=== PATIENT | female | born 1950 | race Caucasian/White ===

== ENCOUNTER → 2017-07-01 | Outpatient (CLI) | payer OTHER | LOC: BMCIMAGING 09:49 | PROVIDERS: ATTEND Podiatrist Foot & Ankle Surgery | DX: M20.11 Hallux valgus (acquired), right foot (principal); M20.12 Hallux valgus (acquired), left foot; M21.611 Bunion of right foot; M21.612 Bunion of left foot; M19.071 Primary osteoarthritis, right ankle and foot; M19.072 Primary osteoarthritis, left ankle and foot ==

== ENCOUNTER 2017-07-07 09:32 | Day surgery (SDC) | payer OTHER ==
[2017-07-07] MEDS ORDERED: LIDOCAINE 1% 2 ML INJ ID PRN (09:42)
[2017-07-07] MEDS ORDERED: LR 1,000 ML IV ONE (09:42)
[2017-07-07] MEDS ORDERED: PROPOFOL/EMULSION 500 MG/50 ML BOTTLE IV ONE (10:40)
[2017-07-07] MEDS ORDERED: LIDOCAINE 2% 5 ML SDV ONE ×2 (10:40→12:01)
[2017-07-07] MEDS ORDERED: fentaNYL 100 MCG/2 ML INJ ONE (10:40)
[2017-07-07] MEDS ORDERED: BUPIVACAINE 0.5% 30 ML SDV ONE (12:01)
[2017-07-07] MEDS ORDERED: ceFAZolin 1 GM/5 ML SYR ONE (12:01)
[2017-07-07] MEDS ORDERED: ceFAZolin 2 GM/SWFI 20 ML SYR IVP ONE (12:14)
[2017-07-07] MEDS ORDERED: MIDAZOLAM 2 MG/2 ML VIAL IVP ONE (12:23)
--- NOTE | 2017-07-07 12:24 | PDANEPAE ---
ANE History of Present Illness right foot bunionectomy ANE Past Medical History - Cardiovascular History Hx Hypertension: No Hx Arrhythmias: No Hx Chest Pain: No Hx Coronary Artery / Peripheral Vascular Disease: No Hx CHF / Valvular Disease: No Hx Palpitations: No Cardiovascular History Comment: BP tends to run low. and slower heart beat - Pulmonary History Hx COPD: No Hx Asthma/Reactive Airway Disease: No Hx Recent Upper Respiratory Infection: No Hx Oxygen in Use at Home: No Hx Sleep Apnea: No Sleep Apnea Screening Result - Last Documented: Negative - Neurologic History Hx Cerebrovascular Accident: No Hx Seizures: No Hx Dementia: No - Endocrine History Hx Diabetes: No - Renal History Hx Renal Disorders: No - Liver History Hx Hepatic Disorders: No - Neurological & Psychiatric Hx Hx Neurological and Psychiatric Disorders: Yes Neurological / Psychiatric History Comment: numbness to left hand - Cancer History Hx Cancer: No - Congenital Disorder History Hx Congenital Disorders: No - GI History Hx Gastrointestinal Disorders: No - Other Health History Other Health History: CHINIK left ear - Chronic Pain History Chronic Pain: No - Surgical History Prior Surgeries: none ANE Review of Systems Review of systems is: negative Review of Systems: - Exercise capacity METS (RN): 5 METS ANE Patient History - Allergies Allergies/Adverse Reactions: No Known Allergies Allergy (Verified 07/06/17 16:37) - Home Medications Home medications: home medication list seen and reviewed - NPO status NPO Since - Liquids (Date): 07/07/17 NPO Since - Liquids (Time): 08:00 NPO Since - Solids (Date): 07/06/17 NPO Since - Solids (Time): 20:00 - Anes Hx Anes Hx: no prior problems - Smoking Hx Smoking Status: Never smoked - Family Anes Hx Family Hx Anesthesia Complications: none ANE Labs/Vital Signs - Vital Signs Blood Pressure: 128/69 Heart Rate: 52 Respiratory Rate: 16 O2 Sat (%): 100 Height: 165.1 cm Weight: 52.163 kg ANE Physical Exam - Airway Neck exam: FROM Mallampati Score: Class 2 Mouth exam: normal dental/mouth exam - Pulmonary Pulmonary: no respiratory distress - Cardiovascular Cardiovascular: regular rate and rhythym - ASA Status ASA Status: I ANE Anesthesia Plan Anesthesia Plan: GA with mask
--- NOTE | 2017-07-07 12:25 | PDHPUP ---
History & Physical Update H&P update statement: This history and physical update is based on an assessment of the patient which was completed after admission or registration (within 24 hours), but prior to the surgery/procedure. H&P update: H&P reviewed & patient examined, no change in patient's condition since H&P completed
[2017-07-07] MEDS ORDERED: ceFAZolin 2 GM/SWFI 2 GM/20 ML SYR IVP ONE (12:30)
[2017-07-07] MEDS ORDERED: fentaNYL 100 MCG/2 ML INJ IVP PRN ×2 (13:27→15:07)
[2017-07-07] MEDS ORDERED: LR 500 ML IV PRN (13:27)
[2017-07-07] MEDS ORDERED: HYDROmorphONE/DILAUDID 1 MG/ML INJ IVP PRN (13:27)
[2017-07-07] MEDS ORDERED: ONDANSETRON 4 MG/2 ML VIAL IVP PRN ×3 (13:27→15:07)
[2017-07-07] MEDS ORDERED: oxyCODONE IR 5 MG TAB PO PRN ×2 (13:27→15:07)
[2017-07-07] MEDS ORDERED: PROMETHAZINE HCL 25 MG/ML INJ IVP PRN (13:27)
[2017-07-07] MEDS ORDERED: HYDROCODONE/APAP 5/325 TAB PO PRN ×2 (13:27→15:07)
[2017-07-07] MEDS ORDERED: ACETAMINOPHEN 500 MG TAB PO PRN ×2 (13:27→15:07)
[2017-07-07] MEDS ORDERED: NALOXONE HCL 0.4 MG/ML INJ IVP PRN ×2 (13:27→15:07)
[2017-07-07] MEDS ORDERED: ALBUTEROL 3 ML DEYVIAL IH PRN (13:27)
[2017-07-07] MEDS ORDERED: PROPOFOL 200 MG/20 ML VIAL ONE (14:17)
[2017-07-07] MEDS ORDERED: KETOROLAC 30 MG/1 ML SDV ONE (14:44)
[2017-07-07] MEDS ORDERED: DEXAMETHASONE 4 MG/ML VIAL ONE (14:47)
[2017-07-07] MEDS ORDERED: OXYCODONE/APAP 5/325 TAB PO PRN (14:56)
[2017-07-07] MEDS ORDERED: ONDANSETRON DISINTEGRATING 4 MG TAB PO PRN (14:56)
--- NOTE | 2017-07-07 15:00 | POSTOPPROG ---
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 Bull/ Chevron bunionectomy, PP repair, PIPJ fusion , Yossi Inf/Abcess present in the surg proc area at time of surgery?: No Depth: Deep Incisional (Fascial) EBL: Tourniquet 225 mm Hg 106 min Complications: None
[2017-07-07 15:47] VITALS: BP 130/81
--- NOTE | 2017-07-08 15:43 | GOP ---
[f rep st] OPERATIVE REPORT DATE OF OPERATION: 07/07/2017 SURGEON: Dariela Smyth DPM ANESTHESIA: Local with monitored anesthesia care. PREOPERATIVE DIAGNOSIS: 1. Right foot hallux abductovalgus deformity. 2. Right foot 2nd toe hammertoe deformity. 3. 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 4. Right foot 2nd metatarsalgia. POSTOPERATIVE DIAGNOSIS: 1. Right foot hallux abductovalgus deformity. 2. Right foot 2nd toe hammertoe deformity. 3. 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 4. Right foot 2nd metatarsalgia. PROCEDURE PERFORMED: 1. Right foot modified Bull bunionectomy. 2. Right foot Chevron bunionectomy. 3. Right foot plantar plate repair. 4. Right 2nd toe proximal interphalangeal joint fusion. 5. Right foot Yossi osteotomy 2nd metatarsal. FINDINGS: ESTIMATED BLOOD LOSS: Minimal. DESCRIPTION OF PROCEDURE: Under mild sedation, the patient was brought into the operating room and p laced on the operating table in a supine position. Following IV sedation, local anesthesia was obtain ed about the right foot using 20 cc of a 1:1 mixture 0.5% Marcaine plain and 1% lidocaine plain. The foot was then scrubbed, prepped, and draped in the usual aseptic manner. A sterile pneumatic ankle to urniquet was placed about the right ankle. The foot was exsanguinated and tourniquet inflated to 225 mmHg. Attention was then directed over the 1st metatarsophalangeal joint, where an incision was made from p roximal to distal medial to the tendon of the extensor hallucis longus. The incision was deepened thr ough subcutaneous tissue with care taken to identify and retract all vital neurovascular structures. All bleeders were cauterized as necessary. An inverted L-type capsulotomy was then performed over the 1st metatarsophalangeal joint. The periosteum and capsule were reflected medially and laterally to e xpose the 1st metatarsal head at the operative site. The medial eminence was resected utilizing an os cillating bone saw. The lateral release was then performed releasing the adductor hallucis from its a ttachment at the base of the proximal phalanx. The lateral contraction of the hallux was noted to be reduced. The lateral aspect of the base of the proximal phalanx was debrided with a rongeur. At this point, a 0.045 inch K-wire was then inserted from medial to lateral across the 1st metatarsal head to serve as an axis guide. A Chevron osteotomy was then performed through the 1st metatarsal metaphysea l region with the arms pointed dorsal proximal and plantar proximal. The dorsal arm was made longer t o accommodate internal fixation. The K-wire was removed and the 1st metatarsal head shifted laterally and impacted upon the remaining 1st metatarsal shaft. It was temporarily fixated with two 0.045 inch K-wires. Following standard AO principles and techniques, 2 Synthes 2.7 cortical screws were placed across the osteotomy site with excellent compression noted. The temporary fixation was removed. The r emaining medial bone shelf was resected utilizing an oscillating bone saw. All rough edges were jenelle hed with a bur. The wound was irrigated with copious sterile saline Ancef irrigation. The periosteum and capsule were repaired with 3-0 Vicryl. The subcuticular layer was repaired with 4-0 Monocryl and the skin with 4-0 Prolene in horizontal suture technique. Attention was then directed to the dorsally dislocated 2nd toe. An incision was made between the 2nd and 3rd metatarsal heads and extended over the 2nd toe and the 2nd proximal interphalangeal joint. Th e incision was deepened through subcutaneous tissue with care taken to identify and retract all vital neurovascular structures. All bleeders were cauterized as necessary. A transverse extensor tenotomy was then performed over the proximal interphalangeal joint. The head of the proximal phalanx and base of the middle phalanx were resected utilizing an oscillating bone saw. The wound was then irrigated with copious sterile saline Ancef irrigation. Attention was then directed further proximal at the 2nd metatarsophalangeal joint, where an incision was made into the joint. A McGlamry elevator was used t o free adhesions about the joint. A Yossi osteotomy was then performed using a sagittal bone saw. The 2nd metatarsal head was then shifted proximally and temporarily fixated with a K-wire. A second K-wir e was then inserted from dorsal to plantar across the base of the proximal phalanx. A distractor was then used across the 2nd metatarsophalangeal joint to evaluate the plantar plate. The plantar plate w as completely ruptured at the lateral aspect, but there were medial fibers present. The remaining med ial fibers were released from the base of the proximal phalanx with a 15 blade. At this point, the ia orpion instrumentation for the Arthrex plantar plate repair kit was used to place the suture through the plantar plate. This did grab the plantar plate nicely. Two drill holes were then used from dorsal to plantar at the medial and the lateral aspect of the base of the proximal phalanx. The technique w as slightly changed instead of crossing the suture through the proximal phalanx to go from plantar do rsal to allow K-wire fixation for the hammertoe. The suture passer was then placed from dorsal to zac ntar and the suture passed through the proximal phalanx from plantar to dorsal. The suture was left i n place until the metatarsal osteotomy was fixated permanently. The wound was irrigated at this time. The distraction K-wires were removed. Attempt was made to use the Arthrex snap-off screws. However, they did not allow for well enough compression across the osteotomy site. The snap-off screws were re moved and replaced with Synthes 2.0 cortical screws from dorsal to plantar. The dorsal bone flange wa s removed with a rongeur. The wound was irrigated with copious sterile saline Ancef irrigation. At th is point, the suture was then tightened dorsally on the proximal phalanx and this pulled the 2nd toe nicely down to the plantar plate with a good repair of the joint. This was then tied in place. At thi s point, a K-wire was then inserted through the base of the middle phalanx, exited out the distal asp ect of the 2nd toe, and retrograded proximally through the proximal phalanx and into the head of the 2nd metatarsal. This was evaluated under fluoroscopy and found to be in perfect position. The wound was then irrigated with copious sterile saline Ancef irrigation. The capsule and extensor t endon DICTATION ENDS HERE INJECTABLES: 20 cc of a 1:1 mixture of 0.5% Marcaine plain and 1% lidocaine plain. HEMOSTASIS: Pneumatic ankle tourniquet at 225 mmHg for 106 minutes. MATERIALS: 1. 2 x 2.7 cortical screws in the 1st metatarsal. 2. 2 x 2.0 Synthes cortical screws in the 2nd metatarsal. 3. Arthrex plantar plate repair kit with FiberWire, 2nd metatarsophalangeal joint. /[id number]/MODL
--- NOTE | 2017-07-09 15:26 | GOP ---
[f rep st] OPERATIVE REPORT DATE OF OPERATION: 07/07/2017 SURGEON: Dariela Smyth DPM PREOPERATIVE DIAGNOSIS: 1. Right foot hallux abductovalgus deformity. 2. Right foot 2nd toe hammertoe deformity. 3. 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 4. Right foot 2nd metatarsalgia. POSTOPERATIVE DIAGNOSIS: 1. Right foot hallux abductovalgus deformity. 2. Right foot 2nd toe hammertoe deformity. 3. 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 4. Right foot 2nd metatarsalgia. PROCEDURE PERFORMED: 1. Right foot modified Bull bunionectomy. 2. Right foot Chevron bunionectomy. 3. Right foot 2nd metatarsophalangeal joint plantar plate repair. 4. Right foot 2nd toe proximal interphalangeal joint fusion. 5. Right 2nd metatarsal Yossi osteotomy. FINDINGS: ESTIMATED BLOOD LOSS: Minimal. DESCRIPTION OF PROCEDURE: Under mild sedation, the patient was brought into the operating room, [facility] ed on the operating table in a supine position. Following IV sedation, local anesthesia was obtained about the right foot using 20 cc of a 1:1 mixture of 0.5% Marcaine plain and 1% lidocaine plain. e foot was then scrubbed, prepped, and draped in the usual aseptic manner. A sterile pneumatic ankle tourniquet was placed about the right ankle. The foot was exsanguinated and tourniquet inflated to 225 mmHg. Attention was then directed to the 1st metatarsophalangeal joint, where an incision was ma de medial and parallel to the tendon of the extensor hallucis longus. The incision was deepened thro ugh subcutaneous tissue with care taken to identify and retract all vital neural and vascular structu res. All bleeders were cauterized as necessary. An inverted L-type capsulotomy was then performed o arsh the 1st metatarsophalangeal joint. The periosteum and capsule were reflected medially and latera lly to expose the 1st metatarsal head at the operative site. The medial eminence was resected utiliz ing an oscillating bone saw. At this point, a lateral release was then performed, releasing the addu ctor hallucis from its attachment at the base of the proximal phalanx. The lateral contraction on th e hallux was noted to be reduced. The exostosis at the lateral base of the proximal phalanx was lazaro carlitos with a rongeur. The wound was irrigated with copious sterile saline and Ancef irrigation. A 0.0 45 inch K-wire was then inserted from medial to lateral across the 1st metatarsal head to serve as an axis guide. A Chevron osteotomy was then performed with the arms pointed dorsal proximal and planta r proximal. The dorsal arm was made longer to accommodate internal fixation. The K-wire was removed and the 1st metatarsal head shifted laterally and impacted upon the remaining 1st metatarsal shaft. It was temporarily fixated with two 0.045 inch K-wires. Following standard AO principles and techni ques, two 2.7 cortical screws were placed across the osteotomy site with excellent compression noted. The medial eminence was resected utilizing an oscillating bone saw. All rough edges were smoothed with a bur. The wound was irrigated with copious sterile saline and Ancef irrigation. Redundant med ial capsule was resected as necessary. The periosteum and capsule were closed with 3-0 Vicryl. The subcuticular layer was repaired with 4-0 Monocryl and the skin with 4-0 Prolene. Attention was then directed to the 2nd metatarsophalangeal joint, where an incision was made between the 2nd and 3rd metatarsal heads and extended over the dorsal aspect of the 2nd toe proximal interpha langeal joint. The incision was deepened through subcutaneous tissue with care taken to identify and retract all vital neural and vascular structures. All bleeders were cauterized as necessary. A tra nsverse extensor tenotomy was then performed over the proximal interphalangeal joint. The head of th e proximal phalanx and base of the middle phalanx were resected and passed from the operative field. At this point, attention was then directed to the 2nd metatarsophalangeal joint, where an incision w as made over the joint. The periosteum and capsule were reflected medially and laterally to expose t he 2nd metatarsal head at the operative site. A McGlamry elevator was used to free the plantar adhes ions about the joint. At this point, a Yossi osteotomy was then performed through the 2nd metatarsal head and the 2nd metatarsal head pushed proximally and temporarily fixated with a K-wire used for the distraction of the joint. A second K-wire was then inserted from dorsal to plantar across the base of the proximal phalanx. The distractor was applied and the plantar plate evaluated dorsally through the joint. There were some remaining fibers medially, but the plantar plate was completely ruptured laterally. The remaining fibers were released. The Arthrex Scorpion device was used to place a sut ure through the plantar plate, which had a good bite. Once this was performed and adequate suture fi xation of the plantar plate was performed, the distractor was removed and the dorsal pinning removed from the proximal phalanx. At this point, the suture holes were made in the base of the proximal pha lanx. This was done from dorsal plantar at the medial and lateral aspects of the proximal phalanx. The suture anchor was then used from dorsal to plantar to grab the suture from the plantar plate. Th e suture from the plantar plate was then brought from plantar to dorsal at both the medial and latera l suture holes. At this point, the temporary fixation was removed from the 2nd metatarsal head and t he 2nd metatarsal head placed into appropriate permanent fixation location. This was temporarily fix ated and evaluated under fluoroscopy and found to be in perfect position. Initially, the 2 snap-off screws with the Arthrex kit were used in the 2nd metatarsal head. However, they did not grab the fra cture appropriately and were not tight. It was decided at this point to remove both the snap-off scr ews replaced them with Synthes 2.0 cortical screws. This fixated the osteotomy nicely. Once this wa s performed, the 2nd metatarsophalangeal joint was placed in the appropriate position and the suture from the plantar plate tied down tightly to the dorsal aspect of the proximal phalanx. This nicely r epaired the predislocation syndrome of the toe and held the toe into anatomic position. At this poin t, the proximal interphalangeal joint was then addressed and a K-wire inserted from the middle phalan x out the distal aspect of the tail and then back through the proximal phalanx. The K-wire was then advanced into the 2nd metatarsal head. This was all evaluated under fluoroscopy. The distal aspect of the wire was then bent and cut. Position of the toe was evaluated clinically and under fluoroscop y and found to be in perfect position. The incision was irrigated with copious sterile saline and An cef irrigation. The tourniquet was deflated during closure at 106 minutes. The extensor tendon was repaired at the proximal interphalangeal joint, as well as the 2nd metatarsophalangeal joint with 3-0 Vicryl. The subcutaneous tissue was repaired with 3-0 Vicryl. The subcuticular layer was repaired with 4-0 Monocryl and the skin with 4-0 Prolene in horizontal suture technique. The wounds were dres sed with Xeroform, 4 x 4 gauze, Adam, cast padding. The patient was then transferred to the recovery room with vital signs stable and vascular status int act. Following a period of postoperative monitoring, the patient will be discharged home, advised to ice and elevate her foot. She is advised to keep the dressing clean, dry, and intact. She will fol low up with me within the next week for a dressing change and wound check. She is weightbearing as t olerated in the walking boot. MATERIALS: 2.7 cortical screws in the 1st metatarsal, 2.0 cortical screws in the 2nd metatarsal, and the Arthrex plantar plate repair kit used with the FiberWire in the 2nd metatarsophalangeal joint. HEMOSTASIS: Pneumatic ankle tourniquet at 225 mmHg for 106 minutes. /[id number]/MODL
== END 2017-07-07 16:30 | disposition home or self-care (01) ==
LOC: FSGY 09:32
PROVIDERS: ATTEND Podiatrist Foot & Ankle Surgery
PROC: 0SGP04Z Fusion of Right Toe Phalangeal Joint with Internal Fixation Device, Open Approach (ICD-10-PCS; principal; 2017-07-07 11:15)
PROC: 0SSM04Z Reposition Right Metatarsal-Phalangeal Joint with Internal Fixation Device, Open Approach (ICD-10-PCS; principal; 2017-07-07 11:15)
PROC: 0QSQ04Z Reposition Right Toe Phalanx with Internal Fixation Device, Open Approach (ICD-10-PCS; principal; 2017-07-07 11:15)
PROC: BQ1X1ZZ Fluoroscopy of Right Foot/Toe Joint using Low Osmolar Contrast (ICD-10-PCS; 2017-07-07 11:15)
DX: M20.11 Hallux valgus (acquired), right foot (principal); M20.41 Other hammer toe(s) (acquired), right foot; M21.6X1 Other acquired deformities of right foot; E78.5 Hyperlipidemia, unspecified; M79.671 Pain in right foot
CPT/HCPCS: C1713; J0690; J1100; J1885; J2250; J2704; J3010

== ENCOUNTER → 2017-08-05 | Outpatient (CLI) | payer OTHER | LOC: BMCIMAGING 14:31 | PROVIDERS: ATTEND Podiatrist Foot & Ankle Surgery | DX: Z47.89 Encounter for other orthopedic aftercare (principal); Z98.1 Arthrodesis status ==

== ENCOUNTER → 2017-12-01 | Outpatient (CLI) | payer OTHER | LOC: BMCIMAGING 10:49 | PROVIDERS: ATTEND Internal Medicine | DX: Z13.820 Encounter for screening for osteoporosis (principal); M81.0 Age-related osteoporosis without current pathological fracture; Z78.0 Asymptomatic menopausal state ==